=== PATIENT | male | born 1970 | race Two or more races ===

== ENCOUNTER 2023-01-04 05:58 | Emergency (ER) | payer SELFPAY ==
--- NOTE | 2023-01-04 06:13 | ED.GENADULT ---
HPI - General Adult General Chief complaint: General Medical Stated complaint: sore throat Time Seen by Provider: 01/04/23 06:12 Source: [facility] Mode of arrival: EMS History of Present Illness HPI narrative: This is a 52-year-old male who has a history of hypertension and is currently taking losartan and arrives via EMS from a hotel where he is staying while he completes work here in [place]. Patient states that approximately 1 week ago he came up from [place], was in a vehicle with the AC on and states that he began having a sore throat at that time and has progressively worsened over the past week until this morning when he awoke and felt like his throat was going to close and prompted him to come into the emergency room. Patient denies any nausea, vomiting, abdominal pain. Patient does report polydipsia and polyuria. Related Data Previous Rx's Medication Instructions Recorded amoxicillin 875 mg-potassium 1 tab PO BID 10 days #20 tabs 01/04/23 clavulanate 125 mg tablet fluconazole 100 mg tablet 100 mg PO DAILY 14 days #14 tabs 01/04/23 metformin 500 mg tablet 500 mg PO BIDWMEAL 30 days #60 tabs 01/04/23 Allergies Allergy/AdvReac Type Severity Reaction Status Date / Time Unable to Assess Allergy Verified 01/04/23 06:02 Review of Systems Review of Systems: Pertinent positives and negatives as stated in HPI [facility] Past Medical History Source: nursing notes reviewed Social History Social History Alcohol intake: current Alcohol intake frequency: holidays/special occasions only Smoked in Last 30 Days: Yes Use of substances other than those prescribed or required for medical reasons: No Physical Exam ED Vital Signs: Vital Signs - 24 hr 01/04/23 06:18 01/04/23 06:26 Temperature 99.2 F 99.2 F Pulse Rate 100 100 Respiratory Rate 16 16 Blood Pressure 139/76 139/76 Pulse Oximetry 98 98 Oxygen Delivery Method Room Air Room Air BMI result Body Mass Index 37.6 VITAL SIGNS: Reviewed. GENERAL: Well developed, well nourished, in no acute distress. HEAD: Normocephalic/atraumatic EYES: PERRLA, EOMI EARS: Ext canals without abnormality, TMs non-bulging and non-erythematous, but bilateral purulence noted NOSE: Nares patent bilateral OROPHARYNX: no oral lesions noted, posterior pharynx clear but erythematous without noted tonsillar enlargement/erythema/exudates NECK: Supple, no adenopathy LUNGS: Normal breath sounds. No adventitious sounds or accessory muscle use. SpO2<98> CARDIOVASCULAR: Regular rate and rhythm without noted murmurs ABDOMEN: Soft, non-tender, non-distended with bowel sounds. MUSCULOSKELETAL: No tenderness, deformities, or effusions noted on gross inspection. EXTREMITIES: No cyanosis, clubbing or edema. SKIN: Inspection of the skin reveals no rashes NEUROLOGIC: Alert and oriented x 4. Strength and sensation to light touch were grossly intact x 4. Medications Administered Discontinued Medications Generic Name Dose Route Start Last Admin Trade Name Freq PRN Reason Stop Dose Admin Benzocaine 1 lozenge 01/04/23 06:12 01/04/23 06:34 Throat Lozenge, Medicated Lozenge MUCOUS MEM 01/04/23 06:13 1 lozenge ONCE ONE Administration Lidocaine/Diphenhydr/Alum/Mg/Simeth 10 ml 01/04/23 06:21 01/04/23 06:33 Mag&Al/Sim/Diphenhyd/Lidocaine 10 Ml Oral.Susp PO 01/04/23 06:22 10 ml ONCE ONE Administration Protocol Medical Decision Making Medical Decision Making [facility] Narrative: 52-year-old male with history and clinical presentation not consistent with angioedema, DDX: DM, esophagitis, viral syndrome. I reviewed all investigations and hematologic indices are grossly within normal limits no evidence of leukocytosis/left shift/anemia. There is evidence of hyperglycemia with pseudohyponatremia and although there is evidence of a mild metabolic acidosis there is no gap. Suspect the patient has esophagitis Kristine, AOM, and new diagnosis of diabetes. He received 200 mg of fluconazole here and will be discharged on remaining course, he also received initial antibiotics here will be discharged on remaining course and then started on metformin. Differential Diagnosis Differential Diagnoses: The differential diagnosis associated with the presentation includes Please see the discussion above Admission/Observation Consideration of admission/observation: Escalation of care including admission/observation considered Lab Data [facility] Lab Attestation statement: I reviewed the patient's lab results. Please see the discussion above 01/04/23 06:26 01/04/23 06:26 Labs: Lab Results 01/04/23 01/04/23 01/04/23 Range/Units 06:11 06:14 06:26 WBC 9.1 (4.8-10.8) X10*3/uL RBC 4.87 (4.60-5.80) X10*6/uL Hgb 14.9 (14.0-18.0) g/dl Hct 43.8 (42.0-52.0) % MCV 89.9 (80.0-98.0) fL MCH 30.6 (27.0-33.0) pg MCHC 34.0 (31.0-36.0) g/dl RDW 13.1 (11.0-16.0) % Plt Count 290 (160-400) X10*3/uL MPV 10.5 (9.4-12.4) fL Immature Gran % (Auto) 0.1 (0.0-0.4) % Neut % (Auto) 67.2 (45-73) % Lymph % (Auto) 22.9 (20-40) % Meriwether % (Auto) 5.9 (2-11) % Eos % (Auto) 3.0 (0-4) % Baso % (Auto) 0.9 (0-2) % Lymph # (Auto) 2.1 (1.2-4.9) X10*3/uL Meriwether # (Auto) 0.5 (0.1-1.2) X10*3/uL Eos # (Auto) 0.3 (0.0-0.4) X10*3/uL Baso # (Auto) 0.1 (0.0-0.2) X10*3/uL Abs Immat Gran (auto) 0.01 (0.00-0.03) X10*3/uL Absolute Neuts (auto) 6.1 (2.0-8.3) x10*3/uL Absolute Nucleated RBC 0.000 (0.0-0.012) X10*3/uL Nucleated RBC % (auto) 0.0 (0.0-0.2) /100WBC Sodium (135-145) mmol/L Potassium (3.3-5.1) mmol/L Chloride (96-108) mmol/L Carbon Dioxide (22-29) mmol/L Anion Gap (12-20) BUN (9-16) mg/dL Creatinine (0.5-1.4) mg/dL Estim Creat Clear Calc Estimated GFR POC Glucose 302 H (60-115) mg/dL Random Glucose (60-115) mg/dL Calcium (8.4-10.2) mg/dL Total Bilirubin (0.0-1.0) mg/dL AST (5-37) U/L ALT (0-40) U/L Alkaline Phosphatase (39-117) U/L Total Protein (6.5-8.0) g/dL Albumin (3.5-5.0) g/dL S. pyogenes GrpA NATHAN Negative (Negative) 01/04/23 Range/Units 06:26 WBC (4.8-10.8) X10*3/uL RBC (4.60-5.80) X10*6/uL Hgb (14.0-18.0) g/dl Hct (42.0-52.0) % MCV (80.0-98.0) fL MCH (27.0-33.0) pg MCHC (31.0-36.0) g/dl RDW (11.0-16.0) % Plt Count (160-400) X10*3/uL MPV (9.4-12.4) fL Immature Gran % (Auto) (0.0-0.4) % Neut % (Auto) (45-73) % Lymph % (Auto) (20-40) % Meriwether % (Auto) (2-11) % Eos % (Auto) (0-4) % Baso % (Auto) (0-2) % Lymph # (Auto) (1.2-4.9) X10*3/uL Meriwether # (Auto) (0.1-1.2) X10*3/uL Eos # (Auto) (0.0-0.4) X10*3/uL Baso # (Auto) (0.0-0.2) X10*3/uL Abs Immat Gran (auto) (0.00-0.03) X10*3/uL Absolute Neuts (auto) (2.0-8.3) x10*3/uL Absolute Nucleated RBC (0.0-0.012) X10*3/uL Nucleated RBC % (auto) (0.0-0.2) /100WBC Sodium 134 L (135-145) mmol/L Potassium 3.9 (3.3-5.1) mmol/L Chloride 101 (96-108) mmol/L Carbon Dioxide 18 L (22-29) mmol/L Anion Gap 19 (12-20) BUN 8 L (9-16) mg/dL Creatinine 0.90 (0.5-1.4) mg/dL Estim Creat Clear Calc 105.7 Estimated GFR > 60 POC Glucose (60-115) mg/dL Random Glucose 295 H (60-115) mg/dL Calcium 9.1 (8.4-10.2) mg/dL Total Bilirubin 0.7 (0.0-1.0) mg/dL AST 25 (5-37) U/L ALT 29 (0-40) U/L Alkaline Phosphatase 130 H (39-117) U/L Total Protein 7.8 (6.5-8.0) g/dL Albumin 4.1 (3.5-5.0) g/dL S. pyogenes GrpA NATHAN (Negative) Chronic Conditions Patient?s care impacted by: Hypertension Discharge Plan Discharge Clinical Impression: Acute otitis media, Kristine esophagitis, Diabetes mellitus, new onset Patient Disposition: Home, Self-Care Instructions: Type 2 Diabetes in Adults: New Diagnosis (ED), Ear Infection (ED), Esophagitis (ED), Diabetes and Nutrition (ED), Diabetes and Exercise (ED) Additional Instructions: 1. Reanudar todos los medicamentos caseros seg?n lo prescrito. Puede usar Cepacol de venta gricelda para el dolor de garganta. 2. Debe completar todo el curso de fluconazol seg?n lo prescrito, esto es para el dolor de garganta. 3. Debe completar todo el curso de antibi?ticos seg?n lo recetado, esto es para mac infecci?n de o?do. 4. Le jaimes diagnosticado diabetes de inicio reciente y [place] comenzado con un medicamento llamado metformina. Se le proporciona un suministro de 30 d?as. 5. Debe hacer un seguimiento con mac m?dico de atenci?n primaria lo antes posible. Regrese a la miriam de emergencias si los s?ntomas empeoran. 1. Resume all home medications as prescribed. You can use [id number] Cepacol for your sore throat. 2. You need to complete the entire course of fluconazole as prescribed, this is for your sore throat. 3. You need to complete the entire course of antibiotics as prescribed, this is for your ear infection. 4. You have been diagnosed with new onset diabetes and have been started on a medication called metformin. You are being provided with a 30 day supply. 5. You need to follow-up with your primary care doctor at your earliest convenience. Return to the ER for any worsening symptoms. Prescriptions: New fluconazole 100 mg tablet 100 mg PO DAILY 14 Days Qty: 14 0RF metformin 500 mg tablet 500 mg PO BIDWMEAL 30 Days Qty: 60 0RF amoxicillin-pot clavulanate 875-125 mg tablet 1 tab PO BID 10 Days Qty: 20 0RF Print Language: Occitan
[2023-01-04 06:15] LABS: Glucose, Whole Blood 302 mg/dL (60-115)
[2023-01-04 06:18] VITALS: BP 139/76; BP 148/92; PULSE 100; PULSE 104; RESP 16; TEMP 37.3; O2SAT 98; BMI 37.6
[2023-01-04 06:26] VITALS: BP 139/76; PULSE 100; RESP 16; TEMP 37.3; O2SAT 98
[2023-01-04 06:27] LABS: IDNOW Serial# 6674DD1D; Strep A Nucleic Acid Negative (Negative)
--- NOTE | 2023-01-04 06:27 | PC.NURSE ---
Pt presents to ER via EMS for a sore throat. Pt is A&Ox4, GCS 15, with warm, dry skin. Pt is Lao speaking only. Pt traveled from [place] and is reporting a sore throat, trouble swallowing x1 week. Pt's throat looks red, no swelling or white spots. Pt stated that the pain is about 6/10 on the pain scale. Pt is concerned about his throat closing and being unable to talk. Pt was swabbed and blood was drawn, samples sent to the lab. Pt was seen by Dr. Gutierrez and is pending lab results at this time.
[2023-01-04 06:32] LABS: MANUAL DIFF FLAG NO
[2023-01-04 06:33] LABS: Basophils Absolute Auto 0.1 X10*3/uL (0.0-0.2); Basophils Percent Auto 0.9 % (0-2); Eosinophils Absolute Auto 0.3 X10*3/uL (0.0-0.4); Hematocrit 43.8 % (42.0-52.0); Hemoglobin 14.9 g/dl (14.0-18.0); Imm Gran Abs Auto 0.01 X10*3/uL (0.00-0.03); Imm Gran Pct Auto 0.1 % (0.0-0.4); Lymphocytes Absolute Auto 2.1 X10*3/uL (1.2-4.9); Lymphocytes Percent Auto 22.9 % (20-40); Mean Corpuscular Hemoglobin 30.6 pg (27.0-33.0); Mean Corpuscular Volume 89.9 fL (80.0-98.0); Mean Platelet Volume 10.5 fL (9.4-12.4); Monocytes Absolute Auto 0.5 X10*3/uL (0.1-1.2); Monocytes Percent Auto 5.9 % (2-11); Neutrophils Absolute Auto 6.1 x10*3/uL (2.0-8.3); Neutrophils Percent Auto 67.2 % (45-73); Platelet Count 290 X10*3/uL (160-400); Red Blood Count 4.87 X10*6/uL (4.60-5.80); Red Cell Distribution Width 13.1 % (11.0-16.0); White Blood Count 9.1 X10*3/uL (4.8-10.8)
[2023-01-04] MEDS: Mag&Al/Sim/Diphenhyd/Lidocaine 10 ML ORAL.SUSP PO (06:33)
[2023-01-04] MEDS: Throat Lozenge, Medicated LOZENGE 1 LOZENGE MUCOUS MEM (06:34)
[2023-01-04 06:49] LABS: Alanine Aminotransferase 29 U/L (0-40); Albumin Level 4.1 g/dL (3.5-5.0); Alkaline Phosphatase 130 U/L (39-117); Anion Gap 19 (12-20); Aspartate Amino Transferase 25 U/L (5-37); Bilirubin Total 0.7 mg/dL (0.0-1.0); Blood Urea Nitrogen 8 mg/dL (9-16); Calcium 9.1 mg/dL (8.4-10.2); Carbon Dioxide 18 mmol/L (22-29); Chloride 101 mmol/L (96-108); Creatinine Clr Calc Pharmacy 105.7; Estimated Glomerular Filt Rate > 60; Glucose Random 295 mg/dL (60-115); Potassium 3.9 mmol/L (3.3-5.1); Sodium 134 mmol/L (135-145); Total Protein 7.8 g/dL (6.5-8.0)
[2023-01-04 07:05] LABS: Influenza A PCR NEGATIVE (Negative); Influenza B PCR NEGATIVE (Negative); Resp Syncy Virus RNA Qual PCR NEGATIVE (Negative); SARS COV2 PCR INHOUSE NEGATIVE (Negative)
[2023-01-04] MEDS: Fluconazole 100 MG TABLET 200 MG PO (07:29)
[2023-01-04] MEDS: Amoxicillin/Potassium Clav 875 MG TABLET PO (07:29)
== END 2023-01-04 08:46 | disposition home or self-care (01) ==
PROVIDERS: Emergency Provider Student in an Organized Health Care Education/Training Program
DX: H66.93 Otitis media, unspecified, bilateral (principal); B37.81 Candidal esophagitis; J02.9 Acute pharyngitis, unspecified; I10 Essential (primary) hypertension; Z20.822 Contact with and (suspected) exposure to COVID-19; Z20.828 Contact with and (suspected) exposure to other viral communicable diseases; Z79.899 Other long term (current) drug therapy
CPT/HCPCS: 0241U; 36415; 80053; 82947; 85025; 87651; 99283; 99284